=== PATIENT | female | born 1990 | race Caucasian/White ===

== ENCOUNTER 2019-05-20 11:40 | Outpatient (RCR) | payer OTHER, SELFPAY ==
[2019-05-20 12:25] VITALS: BP 126/56; PULSE 76
--- NOTE | 2019-05-20 12:55 | PC.NURSE ---
Pt may go to ER for evaluation from shock per Dr. Howell. Pt denies need for evaluation.
== END 2019-08-18 23:59 | disposition home or self-care (01) ==
LOC: ANHOBOP 11:40
PROVIDERS: Visit Provider Obstetrics & Gynecology
DX: O99.89 Other specified diseases and conditions complicating pregnancy, childbirth and the puerperium (principal); Z3A.21 21 weeks gestation of pregnancy; W86.8XXA Exposure to other electric current, initial encounter
CPT/HCPCS: 59025

== ENCOUNTER 2019-09-17 09:50 | Outpatient (CLI) | payer OTHER, SELFPAY ==
[2019-09-17 10:28] LABS: Hematocrit 35.5 % (37.0-47.0); Hemoglobin 11.5 g/dL (12.0-15.0); Mean Corpuscular HGB Conc 32.4 g/dl (32-36); Mean Corpuscular Hemoglobin 26.1 pg (26-34); Mean Corpuscular Volume 80.7 fl (80-100); Mean Platelet Volume 8.6 fl (7.4-10.4); Platelet Count Result 394 k/mm3 (150-375); White Blood Count 10.5 K/mm3 (4.5-10.0)
[2019-09-17 12:49] LABS: Rapid Plasma Reagin Non-Reactive (NonReactive)
== END 2019-09-17 09:51 | disposition home or self-care (01) ==
LOC: ANHLAB 09:51
PROVIDERS: Visit Provider Obstetrics & Gynecology
DX: Z34.93 Encounter for supervision of normal pregnancy, unspecified, third trimester (principal); Z3A.00 Weeks of gestation of pregnancy not specified
CPT/HCPCS: 36415; 85027; 86592; 86850; 86900; 86901

== ENCOUNTER 2019-09-19 09:50 | Inpatient (IN) | payer OTHER, SELFPAY ==
[2019-09-19] VITALS (48 sets, daily range): BP systolic 107–134; BP diastolic 56–75; PULSE 51–89; RESP 12–18; TEMP 36.1–36.7; O2SAT 96–100; BMI 43.0
--- NOTE | 2019-09-19 10:23 | LDADM ---
This patient, Porsha Aguilar, was admitted to OB Post 115 on 09/19/19 at 09:50. Plans for labor, pain management and were discussed with patient. Patient/family oriented to hospital policies and general routines including ID bracelet, bed and alarms, visiting hours, pain management, procedures, bathroom and other care routines, personal items, smoking policy, room service/diet and guest tray routines, infant security routines, and visiting hours. Patient/Family are encouraged to report perceived risks to care and to ask questions if they do not understand what they are told or what they should do. See OBIX for further documentation.
[2019-09-19] MEDS: LACTATED RINGERS 1,000 ML 999 ML IV CONT ×2 (10:51→12:40)
--- NOTE | 2019-09-19 11:51 | PM.IMHP ---
H&P: HPI History of Present Illness Chief complaint: Narrative: Porsha Aguilar is a 28 year old female 2 para 1001 at 39 weeks and 2 days gestation with a history delivery. She and I have agreed to proceed with repeat delivery. She has no complaints. She denies any loss of fluid, vaginal bleeding, contractions. She denies any headache, blurry vision, epigastric pain. She reports good movement. She denies any chest pain or shortness of breath. She denies any nausea, vomiting, fever, chills. Review of Systems Constitutional: Constitutional: Reports no additional constitutional complaints, Denies fatigue, Denies headache(s), Denies lethargy and Denies weakness Eyes: Eyes: Reports no additional eye complaints, Denies blurry vision and Denies photophobia ENT: Reports as per HPI, Denies headache(s) and Denies neck pain Cardiovascular: Cardiovascular: Denies chest pain, Denies diaphoresis, Denies leg edema, Denies palpitations and Denies dyspnea Respiratory: Respiratory: Denies hemoptysis, Denies dyspnea and Denies wheezing Gastrointestinal: Gastrointestinal: Denies abdominal pain, Denies melena, Denies bloating, Denies hematochezia, Denies nausea and Denies vomiting Genitourinary: Genitourinary: Reports no additional female genitourinary complaints Musculoskeletal: Musculoskeletal: Denies joint swelling, Denies neck pain, Denies numbness and Denies stiffness Neurologic: Denies Abnormal speech present, Denies confusion, Denies headache(s), Denies numbness and Denies weakness Psychiatric: Psychiatric: Denies anxiety, Denies confusion, Denies depression, Denies homicidal ideation and Denies suicidal ideation Endocrine: Endocrine: Denies fatigue and Denies palpitations Allergic/Immunologic: Allergic/Immunologic: Denies wheezing PMFSH Social History Social History Smoking status: Never smoker Second hand tobacco smoke exposure: No Alcohol intake: never Substance use: never Gender identity (if verbalized by the patient): Female Spiritual care concerns: No Meds Home Medications and Allergies Home Medications Medication Instructions Recorded Confirmed Type PNV cmb#95-ferrous fumarate-FA 1 tablet PO DAILY 08/24/19 08/24/19 History [] Allergies Allergy/AdvReac Type Severity Reaction Status Date / Time No Known Allergies Allergy Unverified 01/08/18 15:44 Vital Signs Vital Signs - 24 hr 09/19/19 10:16 09/19/19 10:31 09/19/19 10:46 Pulse Rate 83 89 80 Blood Pressure 130/74 134/75 128/70 Exam Const: General: healthy appearing, comfortable and no acute distress; No confusion Orientation/consciousness: No confusion Eyes: Direct Ophthalmoscopy: No photophobia Resp: Auscultation: clear to auscultation bilaterally, no rales, no rhonchi and no wheezes Cardio: Rate: regular rate Heart sounds: no click, no murmurs and no rubs GI: Inspection: non-distended GI Palp: No abdominal tenderness Auscultation: normal bowel sounds Neuro: General: No confusion Speech: No Abnormal speech present Extrem: General: normal to inspection, no pedal edema and no calf tenderness Assessment and Plan Assessment and plan (1) Previous delivery, antepartum condition or complication: Code(s): O34.219 - Maternal care for unspecified type scar from previous delivery Status: Acute (2) Term : Code(s): Z34.90 - Encounter for supervision of normal , unspecified, unspecified trimester Status: Acute Additional Plan This patient is a 28-year-old multiparous female at 39 weeks gestation with a previous delivery. We are to proceed with repeat delivery. She understands the risks, benefits, and alternatives. She has completed the informed consent process and is ready to proceed.
--- NOTE | 2019-09-19 11:57 | WPDANESEPPF ---
Anes - Initial Pre Proc Eval Procedure: Operation Date: 09/19/19 12:00 Proposed Procedures p Repeat Section - Slim Timmons MD Date/Time: 09/19/19 11:57 Surgeon: Slim Timmons MD Pre Op Diagnosis: Patient Data Age: 28 Gender: F Height: 1.7 m Weight: 124.7 kg Last Vital Signs Pulse 80 09/19/19 10:46 BP 128/70 09/19/19 10:46 Allergies Allergy/AdvReac Type Severity Reaction Status Date / Time No Known Allergies Allergy Unverified 01/08/18 15:44 Home Medications Medication Instructions Recorded Confirmed Type PNV cmb#95-ferrous fumarate-FA 1 tablet PO DAILY 08/24/19 08/24/19 History [] Patient hx anesthesia problems: none Family hx anesthesia problems: none PMFSH Surgical History Surgical History (Updated 09/19/19 @ 11:58 by Irvin Nunez MD) Previous delivery, antepartum condition or complication Social History Social History Smoking status: Never smoker Second hand tobacco smoke exposure: No Alcohol intake: never Substance use: never Gender identity (if verbalized by the patient): Female Spiritual care concerns: No Anes - Eval Final PreProcedure Day of Procedure 09/19/19 11:57 Patient weight: morbidly obese Heart: regular rate and rhythm Lungs: clear to auscultation and normal air movement Airway: Mallampati scale class II Neurological: alert and oriented Last oral intake: >/= 8 hours ASA classification: III Emergent: no Anesthetic plan: proceed Anesthesia type and monitoring: regional spinal Informed Consent: The patient's anesthetic plan and its attendant risks and benefits were discussed with the patient/family/POA. Questions were solicited and answers provided to the satisfaction of the patient/family/POA.
[2019-09-19] MEDS: ceFAZolin 3 GM/D5W 100 ML 100 ML IVPB (12:48)
[2019-09-19] MEDS: OXYTOCIN 20 UNITS in LACTATED RINGERS 1,000 ML 999 ML IV CONT (13:50)
--- NOTE | 2019-09-19 13:50 | PM.PROC ---
Procedure Note - Detailed Date of procedure: 09/19/19 Pre-op diagnosis: Previous delivery Post-op diagnosis: other (Pelvic adhesions, and previous delivery) Procedure performed: low-transverse delivery Description of procedure: The patient was taken the operating room. She was prepped and draped in the dorsal supine position with leftward tilt after induction of spinal anesthetic. When anesthesia was found to be adequate a low-transverse skin incision was made and carried down to the level the fascia with the knife. The fascial incision was made at the midline with a scalpel. The fascial incision was extended laterally with Walton scissors. The fascia was tented upward superior and inferior with Funmi clamps. The rectus muscles were dissected off bluntly. The rectus muscles at the midline. The preperitoneal fat was dissected bluntly at the superior aspect of the separate the rectus muscles. The peritoneal cavity was entered bluntly in the same area. The peritoneal incision was extended superior and inferior with good visualization of bladder. Bladder blade was inserted. A low-transverse incision was made on the uterus with the scalpel. It was carried down the level of the amniotic cavity with a knife. The amniotic cavity bluntly. The uterine incision was made laterally with blunt traction. The was delivered. The cord was clamped and cut. The infant was handed off to waiting pediatric staff. Cord bloods were obtained. The placenta was removed manually. The uterus was exteriorized. Uterus cleared of all clots and debris. Uterus closed in 0 Vicryl in a running locked fashion. An imbricating layer of 0 Vicryl was also placed on the to bolster the closure. Adhesion lysis was performed for about 20 minutes. Omental adhesions to the left adnexa were dissected off using sharp and blunt dissection and suture. With that was completed, The uterus was returned to the abdomen. The gutters were cleared of all clots and debris. The fascia was closed 0 Vicryl in a running fashion. Subcutaneous tissue was irrigated and bleeding areas were cauterized. The skin was closed with subcuticular absorbable afia. The incision was covered with derma rubalcava. The patient tolerated the procedure well. She was taken recovery room stable condition. Sponge, lap, needle counts were correct x2. Anesthesia: spinal Surgeon: Slim Timmons MD Estimated blood loss (mL): 550 Drains: No Packing: No Pathology: none sent Complications: No immediate complications Condition: stable Disposition: floor Findings: Normal maternal anatomy. Average size with normal Apgars. No gross evidence of abruption. Adhesions between the omentum and the left adnexa and uterine fundus.
--- NOTE | 2019-09-19 16:11 | PC.NURSE ---
Patient transferred to post room #281 per stretcher from labor and delivery. Support person present. Oriented to unit, room, information board, rooming in, admission packet and security measures. Patient verbalizes understanding.
[2019-09-19] MEDS: OXYTOCIN 30 UNITS/NS 500 ML 30 UNITS/500 ML BAG 125 UNITS IV CONT (16:49)
[2019-09-19] MEDS: NALBUPHINE HCL 10 MG/ML AMPUL 2 MG IV PUSH ×2 (16:52→20:51)
[2019-09-19] MEDS: TETANUS,DIPHTHERIA,AC PERTUSSIS ADULT (0.5 ML) BOOSTRIX IM (20:53)
[2019-09-20] MEDS: KETOROLAC 30 MG/ML VIAL (*BKC) IV PUSH (00:22)
[2019-09-20 00:34] VITALS: BP 120/64; PULSE 90; RESP 16; TEMP 36.8; O2SAT 97
[2019-09-20 04:01] VITALS: PULSE 90; RESP 16; O2SAT 97
[2019-09-20 04:06] VITALS: BP 111/61; PULSE 88; RESP 18; TEMP 36.8; O2SAT 96
[2019-09-20 05:14] LABS: Basophils Percent Auto 0.3 % (0.2-1.2); Eosinophils Percent Auto 0.3 % (0-4.4); Hematocrit 31.4 % (37.0-47.0); Hemoglobin 10.2 g/dL (12.0-15.0); Immature Granulocyte Absolute 0.05 K/mm3 (0.00-0.031); Immature Granulocyte Percent A 0.5 % (0-0.5); Lymphocytes Absolute Auto 1.44 K/mm3 (0.9-3.2); Lymphocytes Percent Auto 13.8 % (18.3-44.2); Mean Corpuscular HGB Conc 32.5 g/dl (32-36); Mean Corpuscular Hemoglobin 25.9 pg (26-34); Mean Corpuscular Volume 79.7 fl (80-100); Mean Platelet Volume 8.7 fl (7.4-10.4); Monocytes Absolute Auto 0.5 K/mm3 (0.1-0.6); Monocytes Percent Auto 5.2 % (2.6-8.5); Neutrophils Absolute Auto 8.4 K/mm3 (1.3-6.7); Neutrophils Percent Auto 79.9 % (45.5-73.1); Platelet Count Result 351 k/mm3 (150-375); Red Blood Count 3.94 M/mm3 (4.2-5.4); Red Cell Distribution Width 12.9 % (11.5-14.5); White Blood Count 10.4 K/mm3 (4.5-10.0)
[2019-09-20] MEDS: IBUPROFEN 600 MG TABLET PO ×3 (07:29→20:43)
[2019-09-20] MEDS: MULTIVIT/MIN/PREN/FOL AC/IRON TABLET 1 TAB PO (07:30)
[2019-09-20] MEDS: SIMETHICONE 80 MG TAB.CHEW PO ×5 (07:30→20:42)
[2019-09-20] MEDS: DOCUSATE SODIUM 100 MG CAPSULE PO ×2 (07:30→14:13)
[2019-09-20] MEDS: LANOLIN (LANSINOH) 7.5 GM CREAM 1 APPLIC TOPICAL (07:32)
--- NOTE | 2019-09-20 07:32 | P.PNOB_ITS ---
OB - PN: Subj Subjective Date/time seen: 09/20/19 07:32 Patient comments: no complaints, pain well controlled, tolerating diet and flatus present OB - PN: Obj Data Labs CBC & Chem 7: 09/20/19 03:31 Labs: Laboratory Results - last 24 hr 09/20/19 03:31 WBC 10.4 H RBC 3.94 L Hgb 10.2 L Hct 31.4 L MCV 79.7 L MCH 25.9 L MCHC 32.5 RDW 12.9 Plt Count 351 MPV 8.7 Immature Gran % (Auto) 0.5 Neut % (Auto) 79.9 H Lymph % (Auto) 13.8 L [place] % (Auto) 5.2 Eos % (Auto) 0.3 Baso % (Auto) 0.3 Lymph # (Auto) 1.44 [place] # (Auto) 0.5 Eos # (Auto) 0.0 Baso # (Auto) 0.0 Abs Immat Gran (auto) 0.05 H Absolute Neuts (auto) 8.4 H Absolute Nucleated RBC 0.0 Nucleated RBC % 0.0 OB - PN A/P Plan day: 1 Comments: Post Op LTCS - no problems, routine recovery Time Spent With Patient Time: Total time spent is greater than 50% in coordination of care (as documented) at patient's floor/unit and/or counseling patient: Exam Const: General: cooperative, healthy appearing, comfortable and no acute distress Resp: Auscultation: no crackles, no rales, no rhonchi and no wheezes Cardio: Rhythm: regular rhythm Heart sounds: no click and no murmurs GI: Inspection: non-distended Auscultation: normal bowel sounds Extrem: General: normal to inspection, no pedal edema and no calf tenderness
[2019-09-20 08:00] VITALS: BP 130/70; PULSE 85; RESP 18; TEMP 36.3
--- NOTE | 2019-09-20 08:00 | WPDANLDPN2 ---
Anes-Prog Note L&D Date/Time: 09/20/19 08:00 Comfortable throughout: section Neuraxial method: spinal Epidural/Spinal procedure site: clean & non-tender Neuro status: Neuro function grossly intact. Cardiovascular status: normal Respiratory status: normal Airway patency: baseline Mental status: baseline Post-Op hydration status: normal Vital Signs: Last Vital Signs Temp 98.3 F 09/20/19 04:06 Pulse 88 09/20/19 04:06 Resp 18 09/20/19 04:06 BP 111/61 09/20/19 04:06 Pulse Ox 96 09/20/19 04:06 I/O: Intake & Output 09/19/19 09/20/19 09/20/19 23:59 07:59 15:59 Intake Total 640 4000 Output Total 925 3175 Balance -285 825 Post-procedural complaints: pruritis severe, treatment refractory Patient feedback: Patient satisfied with anesthetic care.
--- NOTE | 2019-09-20 08:01 | WPDANLDNPN2 ---
Anes-Prog Note L&D-Neuraxial Date/Time: 09/20/19 08:01 Opiod-related complaints: pruritis severe, treatment refractory Patient feedback: Patient satisfied with post-operative pain management.
[2019-09-20 12:00] VITALS: BP 132/67; PULSE 73; RESP 18; TEMP 36.4
--- NOTE | 2019-09-20 12:55 | PC.NURSE ---
Consulted with patient, mother reports this is 2nd child to breastfeed. Mother is up in bedside chair attempting to breast. R reviewed infant feeding cues, frequencies, duration of feedings, feeding elimination flow sheet, and signs of adequate intake. Demonstrated stimulation techniques to wake infant for feeding. Assisted with to breast. Reviewed positioning/alignment in cross cradle, holding breast in U hold and guided asymmetrical latch on. was able to latch correctly. Infant nursed eagerly, with steady draws and frequent swallowing noted. Reviewed signs of a correct latch, effective nursing and suck swallow ratio. Mother switched to cradle,positioning, suggested mother hold breast during entire feeding to assist infant maintaining deep latch for her comfort and increased intake. Demonstrated how to adjust latch more deeply while feeding. Infant was able to maintain latch without discomfort to mother. Nipple care reviewed. Instructed mother to call out for RN assistance if she is unable to latch infant for feeding or she has discomfort with nursing. Instructed feeding should be initiated three hours from start of last feeding or if feeding cues are noted before. Mother voiced understanding of information shared.
[2019-09-20 20:30] VITALS: BP 137/66; PULSE 101; RESP 16; TEMP 36.5; O2SAT 98
[2019-09-21] MEDS: SIMETHICONE 80 MG TAB.CHEW PO ×4 (05:36→17:25)
[2019-09-21] MEDS: IBUPROFEN 600 MG TABLET PO ×2 (05:37→12:43)
[2019-09-21] MEDS: MULTIVIT/MIN/PREN/FOL AC/IRON TABLET 1 TAB PO (07:44)
[2019-09-21] MEDS: DOCUSATE SODIUM 100 MG CAPSULE PO ×2 (07:45→17:25)
--- NOTE | 2019-09-21 10:15 | PM.OBPNVD ---
OB - PN: Subj Subjective Date/time seen: 09/21/19 10:15 Patient comments: no complaints, pain well controlled, incisional pain, tolerating diet and flatus present OB - PN: Obj Data Labs CBC & Chem 7: 09/20/19 03:31 OB - PN A/P Plan day: 2 Plan: routine care Comments: POD#2 LTCS - no problems, Time Spent With Patient Time: Total time spent is greater than 50% in coordination of care (as documented) at patient's floor/unit and/or counseling patient: Exam Const: General: comfortable, no acute distress and alert Resp: Effort & Inspection: normal respiratory effort Auscultation: no crackles, no rales and no rhonchi Cardio: Rate: regular rate Heart sounds: no click, no murmurs and no rubs GI: Inspection: non-distended GI Palp: No Tenderness to palpation present (GI) Auscultation: normal bowel sounds Other: Incision - CDI Extrem: General: normal to inspection, no pedal edema and no calf tenderness
[2019-09-21 10:27] VITALS: BP 124/68; PULSE 89; RESP 18; TEMP 37.1; O2SAT 100
[2019-09-21 20:30] VITALS: BP 124/64; PULSE 100; RESP 16; TEMP 36.2; O2SAT 100
[2019-09-22] MEDS: IBUPROFEN 600 MG TABLET PO ×2 (01:22→08:00)
--- NOTE | 2019-09-22 02:05 | PC.NURSE ---
0120 - met pt in hallway (as she was walking) to check in with her and she how she was feeling and if she needed anything. pt states she had recently called out for pain meds and would also like fresh water. Walked pt to room. Pt stated she would like a [place] 5 and Motrin. Upon return with those pain medicines, pt was tearful and crying in the chair. Stated her pain was very bad and rated it an 8. Asked pt if she would like a [place] 10 instead along with the Motrin and she agreed that it would be better to have a [place] 10 at this time. Pt also stated that she had blisters on her buttocks from her pad rubbing her and from sitting in bed. After assessing pt's buttock it appears to be bilateral reddened areas, approximately 4 inches (on both sides) located on the outer lower portion of buttocks; no blisters noted, no skin tears noted. Reddened areas appear to be right where the mesh underwear is rubbing. Pt changed into larger mesh underwear, and encouraged to use her personal underwear if that would feel better. Pt given pain meds and suggested to leave buttocks open to air as much as possible (without wearing underwear) while in the room and will call provider for further orders.
[2019-09-22] MEDS: BETAMETHASONE/CLOTRIMAZOLE CR 15 GM TUBE 1 APPLIC TOPICAL (02:18)
[2019-09-22] MEDS: WITCH HAZEL 40 PADS 1 PAD TOPICAL (02:19)
[2019-09-22] MEDS: BENZOCAINE 20% AER SPR (*SP) 56 GM CAN 1 SPRAY TOPICAL (02:20)
--- NOTE | 2019-09-22 07:45 | PM.OBPNVD ---
OB - PN: Subj Subjective Date/time seen: 09/22/19 07:45 Patient comments: no complaints, pain well controlled, incisional pain, tolerating diet and flatus present OB - PN: Obj Data Labs CBC & Chem 7: 09/20/19 03:31 OB - PN A/P Plan day: 3 Plan: routine care, discharge home and other Comments: Incision check in one week. Given precautions Time Spent With Patient Time: Total time spent is greater than 50% in coordination of care (as documented) at patient's floor/unit and/or counseling patient: Exam Const: General: comfortable, no acute distress and alert Resp: Effort & Inspection: normal respiratory effort Auscultation: no crackles, no rales and no rhonchi Cardio: Rate: regular rate Heart sounds: no click, no murmurs and no rubs GI: Inspection: non-distended GI Palp: No Tenderness to palpation present (GI) Auscultation: normal bowel sounds Other: Incision - CDI Extrem: General: normal to inspection, no pedal edema and no calf tenderness
--- NOTE | 2019-09-22 07:46 | PM.OBDSVD ---
DS: Admitting Diagnosis Admitting Diagnosis Admitting Diagnosis: Maternal care for unspecified type scar from previous delivery DS: Discharge Diagnosis Discharge Diagnosis (1) Previous delivery, antepartum condition or complication: Code(s): O34.219 - Maternal care for unspecified type scar from previous delivery Status: Acute (2) Prior complicated by PIH, antepartum: Code(s): O09.899 - Supervision of other high risk pregnancies, unspecified trimester Status: Acute (3) Term : Code(s): Z34.90 - Encounter for supervision of normal , unspecified, unspecified trimester Status: Acute OB - DS: Summary OB Procedures : None OB Procedures Intrapartum: OB Procedures: : None Peripartum Data Procedures: Procedures Operation Date: 09/19/19 12:00 Actual Procedures Side Surgeon p Section Slmi Timmons MD Time Spent with Patient Time attestation: Total time spent providing and/or coordinating discharge services: Discharge Plan Discharge Attending physician on discharge: Slim Timmons Consulting providers: Slim Timmons Discharging Clinician: Slim Timmons Patient Disposition: Home Health Service Diet: regular Patient Instructions: Antibiotic Form Stand Alone Forms: General Discharge Information Follow-up/Referrals: Slim Timmons MD [Physician] - Discharge Medications: New hydrocodone-acetaminophen 5-325 mg tablet 1 - 2 tablet PO Q4H PRN (Reason: pain) Qty: 25 RF: 0 Continued PNV cmb#95-ferrous fumarate-FA [] 28 mg iron- 800 mcg Tablet 1 tablet PO DAILY RF: 0 Date of admission: 09/19/19 09:50 Primary Care Provider: PHYSICIAN,DISPLAY SCREEN FABRICATOR Admitting Provider: Slim Timmons Attending physician on admission: Slim Timmons
[2019-09-22 07:50] VITALS: BP 125/75; PULSE 88; RESP 16; TEMP 37.1; O2SAT 99
[2019-09-22] MEDS: MULTIVIT/MIN/PREN/FOL AC/IRON TABLET 1 TAB PO (08:00)
[2019-09-22] MEDS: DOCUSATE SODIUM 100 MG CAPSULE PO (08:00)
--- NOTE | 2019-09-22 08:00 | PC.NURSE ---
Patient viewed the discharge video Mother & Baby Care, The First Two Weeks . Patient was given the opportunity and encouraged to ask questions. Patient verbalized understanding of information shared and has been given the mother/baby guide for home reference.
[2019-09-23 07:52] VITALS: BP 135/77; PULSE 92; RESP 20; TEMP 36.8; O2SAT 98
== END 2019-09-22 12:20 | disposition home or self-care (01) | DRG 540 ==
LOC: ANHOBPP 09:57 → ANHOB2 16:24
PROVIDERS: Admitting Provider Obstetrics & Gynecology; Visit Provider Obstetrics & Gynecology
PROC: 10D00Z1 Extraction of Products of Conception, Low, Open Approach (ICD-10-PCS; CPT 59514; principal; 2019-09-19 12:00)
DX: O34.211 Maternal care for low transverse scar from previous cesarean delivery (principal); Z37.0 Single live birth; Z3A.39 39 weeks gestation of pregnancy; O13.4 Gestational [pregnancy-induced] hypertension without significant proteinuria, complicating childbirth; O99.214 Obesity complicating childbirth; E66.01 Morbid (severe) obesity due to excess calories
CPT/HCPCS: 36415; 85025; 90715; A9270; J0131; J0690; J1200; J1885; J2274; J2300; J2590; J7120

== ENCOUNTER 2021-09-23 09:09 | Outpatient (RCR) | payer OTHER, SELFPAY ==
[2021-09-19 21:42] LABS: Beta HCG Quantitative 6.65 mIU/ML
[2021-09-23 09:55] LABS: Beta HCG Quantitative < 2.39 mIU/ML
== END 2021-12-18 23:59 | disposition home or self-care (01) ==
LOC: ANHLAB 09:09
PROVIDERS: Visit Provider Obstetrics & Gynecology
DX: O20.0 Threatened abortion (principal); Z3A.00 Weeks of gestation of pregnancy not specified
CPT/HCPCS: 36415; 84702

== ENCOUNTER 2022-11-17 10:02 | Outpatient (CLI) | payer OTHER, SELFPAY ==
[2022-11-17 10:33] LABS: Hemoglobin 11.4 g/dL (12.0-15.0); Mean Corpuscular HGB Conc 32.6 g/dl (32-36); Mean Corpuscular Hemoglobin 25.6 pg (26-34); Mean Corpuscular Volume 78.5 fl (80-100); Mean Platelet Volume 8.6 fl (7.4-10.4); Platelet Count Result 445 k/mm3 (150-375); Red Blood Count 4.46 M/mm3 (4.2-5.4); Red Cell Distribution Width 13.7 % (11.5-14.5); White Blood Count 8.8 K/mm3 (4.5-10.0)
[2022-11-17 14:19] LABS: Rapid Plasma Reagin Non-Reactive (NonReactive)
== END 2022-11-17 10:03 | disposition home or self-care (01) ==
LOC: ANHLAB 10:04
PROVIDERS: Visit Provider Obstetrics & Gynecology
DX: Z34.93 Encounter for supervision of normal pregnancy, unspecified, third trimester (principal); Z3A.00 Weeks of gestation of pregnancy not specified
CPT/HCPCS: 36415; 85027; 86592; 86850; 86900; 86901

== ENCOUNTER 2022-11-18 05:10 | Inpatient (IN) | payer OTHER, SELFPAY ==
[2022-11-18] VITALS (35 sets, daily range): BP systolic 111–138; BP diastolic 42–78; PULSE 64–120; RESP 16–22; TEMP 36.1–37.1; O2SAT 95–100; BMI 43.1
--- NOTE | 2022-11-18 06:06 | WPDANESEPP ---
Anes - Eval Pre Procedure Procedure: Operation Date: 11/18/22 07:30 Proposed Procedures p Repeat Section - Slim Timmons MD Date/Time: 11/18/22 06:06 Pre Op Diagnosis: section Patient Data Age: 31 Gender: F Height: Weight: Allergies Allergy/AdvReac Type Severity Reaction Status Date / Time No Known Allergies Allergy Unverified 01/08/18 15:44 Home Medications Medication Instructions Recorded Confirmed Type vit no.95-ferrous 1 tablet PO DAILY 08/24/19 08/24/19 History fumarate 28 mg-folic acid 800 mcg tablet () Patient hx anesthesia problems: none Family hx anesthesia problems: none Results Review: All pre-operative results and documents have been reviewed as part of the pre-operative evaluation. FOR[facility]LY [facility], [facility] Past Medical History Medical History (Updated 11/18/22 @ 06:09 by Rama Snow CRNA) Morbid obesity Surgical History Surgical History Previous delivery, antepartum condition or complication Family History Family History Father Diabetes mellitus Hypertension Grandparent Diabetes mellitus Hypertension Mother Cerebrovascular accident Family history of pulmonary embolism Social History Social History Smoking status: Never smoker Second hand tobacco smoke exposure: No Alcohol intake: never Substance use: never Gender identity (if verbalized by the patient): Female Spiritual care concerns: No Exam Day of Procedure 11/18/22 06:06 Patient weight: morbidly obese Heart: regular rate and rhythm Lungs: normal air movement Airway: Mallampati scale Neurological: alert and oriented
--- NOTE | 2022-11-18 06:18 | LDADM ---
This patient, Porsha Aguilar, was admitted to Labor/Delivery/Recovery 120 on 11/18/22 at 05:10. Plans for labor, pain management and were discussed with patient. Patient/family oriented to hospital policies and general routines including ID bracelet, bed and alarms, visiting hours, pain management, procedures, bathroom and other care routines, personal items, smoking policy, room service/diet and guest tray routines, security routines, and visiting hours. Patient/Family are encouraged to report perceived risks to care and to ask questions if they do not understand what they are told or what they should do. See OBIX for further documentation.
[2022-11-18] MEDS: LACTATED RINGERS 1,000 ML 125 ML IV CONT ×2 (06:22→06:57)
[2022-11-18] MEDS: ceFAZolin 3 GM/D5W 100 ML 100 ML IVPB (06:57)
--- NOTE | 2022-11-18 07:00 | P.PNAN_ITS ---
Anes - Eval Final PreProcedure Day of Procedure 11/18/22 07:00 Patient weight: morbidly obese Heart: regular rate and rhythm Lungs: clear to auscultation and normal air movement Airway: Mallampati scale class II Neurological: alert and oriented Last oral intake: >/= 8 hours ASA classification: III Emergent: no Anesthetic plan: proceed Anesthesia type and monitoring: regional spinal and standard monitoring Results Review: All pre-operative results and documents have been reviewed as part of the pre- operative evaluation. Informed Consent: The patient's anesthetic plan and its attendant risks and benefits were discussed with the patient/family/POA. Questions were solicited and answers provided to the satisfaction of the patient/family/POA.
--- NOTE | 2022-11-18 07:24 | PM.IMHP ---
H&P: HPI History of Present Illness Date/Time: 11/18/22 07:24 Chief Complaint: Term Narrative: this patient is a 31-year-old female with previous delivery in unwanted fertility. We have agreed to perform repeat delivery and bilateral salpingectomy. She understands the risk. She understands that injuries may occur that result in hospitalization go more surgery, and severe illness. She understands there is risk of hemorrhage and infection. She denies any nausea, vomiting, fever, chills. She denies any chest pain or shortness of breath. Review of Systems Review of Systems: All systems reviewed & are unremarkable except as noted in HPI and below Constitutional: Constitutional: Denies chills, Denies fatigue, Denies fever(s) and Denies weakness Eyes: Eyes: Denies blurry vision, Denies change in vision, Denies loss of peripheral vision, Denies loss of vision, Denies other visual disturbances and Denies eye pain ENT: Denies vertigo, Denies dizziness, Denies hearing loss, Denies mouth pain, Denies nasal obstruction, Denies neck mass and Denies neck pain Cardiovascular: Cardiovascular: Denies chest pain, Denies diaphoresis, Denies syncope, Denies leg edema and Denies dyspnea Respiratory: Respiratory: Denies chest congestion, Denies cough, Denies hemoptysis, Denies dyspnea and Denies wheezing Gastrointestinal: Gastrointestinal: Denies abdominal pain, Denies constipation, Denies diarrhea, Denies nausea and Denies vomiting Genitourinary: Genitourinary: Denies hematuria, Denies change in libido, Denies nocturia, Denies genital lesions, Denies flank pain and Denies urinary urgency Musculoskeletal: Musculoskeletal: Denies abnormal gait, Denies back pain, Denies myalgias, Denies arthralgias, Denies joint swelling, Denies muscle weakness and Denies neck pain Integumentary/Breasts: Skin/Breast: Denies swelling, Denies breast pain, Denies breast mass, Denies dry skin, Denies nipple discharge, Denies unusual bruising and Denies jaundice Neurologic: Denies Neuro-related abnormal movements, Denies Abnormal speech present, Denies abnormal gait, Denies behavioral changes, Denies confusion, Denies vertigo, Denies dizziness, Denies syncope, Denies loss of vision, Denies memory loss, Denies convulsions and Denies weakness Psychiatric: Psychiatric: Denies abnormal sleep pattern, Denies behavioral changes, Denies change in libido, Denies confusion, Denies depression, Denies anhedonia and Denies memory loss Endocrine: Endocrine: Reports no additional endocrine complaints, Denies change in libido and Denies fatigue Hematologic/Lymphatic: Hematologic/Lymphatic: Reports no additional hematologic/lymphatic complaints Allergic/Immunologic: Allergic/Immunologic: Reports no additional allergic/immunologic complaints and Denies wheezing PMFSH Past Medical History Medical History (Updated 11/18/22 @ 07:27 by Slim Timmons MD) Morbid obesity Surgical History Surgical History Previous delivery, antepartum condition or complication Family History Family History Father Diabetes mellitus Hypertension Grandparent Diabetes mellitus Hypertension Mother Cerebrovascular accident Family history of pulmonary embolism Social History Social History Smoking status: Never smoker Second hand tobacco smoke exposure: No Alcohol intake: never Substance use: never Lack of Transportation: No Lack of Food: Never True Current Housing: I Have Housing Concerned About Future Housing: No Difficulty Paying Gas/Electric Bills: No Difficulty Paying for Meds: No Currently Unemployed: No Education: Bachelor's Degree Difficulty w/ Childcare or Family Care: No Gender identity (if verbalized by the patient): Female Spiritual care concerns: No
--- NOTE | 2022-11-18 07:29 | WPDHPUPDATE1 ---
History and Physical Update Update Date/Time: 11/18/22 07:29 History and Physical has been reviewed, including an updated exam of the patient. There are NO changes in the patient's condition. Risks, benefits, and alternatives have been discussed and questions answered. Patient agrees to proceed with procedure.
--- NOTE | 2022-11-18 08:52 | W.PM.PROC2 ---
Procedure Note - Detailed Date of Procedure 11/18/22 Pre-op Diagnosis Previous , unwanted fertility Post-op Diagnosis Same Procedure Performed Low-transverse section Surgeon Slim Timmons MD Anesthesia Spinal Findings Normal gestational maternal anatomy, average size , normal Apgars. Description of Procedure The patient was taken the operating room. She was prepped and draped in dorsal supine position with a leftward tilt. This was done after spinal anesthetic was applied. A low-transverse skin incision was made and carried down till of the fascia with the knife. The fascial incision was made with the knife. The fascial incision was extended laterally with Walton scissors. The fascia was tented upward superiorly and inferiorly the rectus muscles were dissected off bluntly. The rectus muscles were the midline. The preperitoneal fat and peritoneum were dissected open bluntly at the superior aspect of the rectus muscles. The peritoneal incision was extended superior and inferior with good position of bladder. The uterine incision was made with a scalpel down to the level of the amniotic cavity. The amniotic cavity was entered bluntly. The infant was delivered. The cord was clamped and cut and the was handed off to waiting pediatric staff. Cord bloods were obtained. The placenta was removed manually. The uterus was exteriorized. The uterus was cleared of all clots, debris and membranes. The uterus was closed in 0 Vicryl running lock fashion. An imbricating over a was placed along the incision line as well. Each fallopian tube was grasped and raised with a [place]. With from the underlying venous structures. The mesosalpinx between the tube and the rest the adnexa was cauterized and transected with LigaSure cautery. It was performed from the distal tube near the ovary in a stepwise fashion towards the cornua. The tube at the cornua was cauterized transected with LigaSure cautery. This was performed in a bilateral fashion. The uterus was returned to the abdomen. The gutters were cleared of all clots and debris. The fascia was closed with 0 Vicryl running fashion. The subcutaneous tissue was irrigated pinpoint bleeders were cauterized. The skin was closed with subcuticular absorbable afia. The skin incision line was covered with glue. The patient tolerated the procedure well. She has taken recovery room in stable condition. Sponge lap and needle counts were correct x2. Complications No immediate complications Condition Stable Disposition PACU
[2022-11-18] MEDS: OXYTOCIN 30 UNITS/NS 500 ML 30 UNITS/500 ML BAG 125 UNITS IV CONT (09:49)
--- NOTE | 2022-11-18 10:51 | OBPPTRN ---
Patient transferred to post room #281 via stretcher. Support person present. Oriented to unit, room, information board, rooming in, admission packet and security measures. Patient verbalizes understanding.
[2022-11-18] MEDS: KETOROLAC 30 MG/ML VIAL (*BKC) IV PUSH (12:43)
[2022-11-18] MEDS: DEXTROSE 5%/0.45% SOD CHL 1,000 ML 125 ML IV CONT (13:58)
[2022-11-18] MEDS: MULTIVIT/MIN/PREN/FOL AC/IRON TABLET 1 TAB PO (16:20)
[2022-11-18] MEDS: diphenhydrAMINE HCl CAP 25 MG CAPSULE PO (16:20)
[2022-11-18] MEDS: DOCUSATE SODIUM 100 MG CAPSULE PO (16:20)
[2022-11-18] MEDS: HYDROcodone/acetaminophen (*CRX) 5-325 MG TABLET 1 TAB PO (19:36)
[2022-11-18] MEDS: IBUPROFEN 600 MG TABLET PO (19:36)
[2022-11-19] MEDS: diphenhydrAMINE HCl CAP 25 MG CAPSULE PO
[2022-11-19 01:11] VITALS: BP 114/65; PULSE 87; RESP 18; TEMP 37.1; O2SAT 96
[2022-11-19 06:01] LABS: Basophils Percent Auto 0.2 % (0.2-1.2); Eosinophils Absolute Auto 0.1 K/mm3 (0-0.3); Eosinophils Percent Auto 0.7 % (0-4.4); Hemoglobin 9.5 g/dL (12.0-15.0); Immature Granulocyte Absolute 0.04 K/mm3 (0.00-0.031); Immature Granulocyte Percent A 0.3 % (0-0.5); Lymphocytes Absolute Auto 2.05 K/mm3 (0.9-3.2); Lymphocytes Percent Auto 16.7 % (18.3-44.2); Mean Corpuscular HGB Conc 31.7 g/dl (32-36); Mean Corpuscular Hemoglobin 25.7 pg (26-34); Mean Corpuscular Volume 81.1 fl (80-100); Mean Platelet Volume 8.8 fl (7.4-10.4); Monocytes Absolute Auto 0.8 K/mm3 (0.1-0.6); Monocytes Percent Auto 6.2 % (2.6-8.5); Neutrophils Absolute Auto 9.3 K/mm3 (1.3-6.7); Neutrophils Percent Auto 75.9 % (45.5-73.1); Platelet Count Result 398 k/mm3 (150-375); Red Cell Distribution Width 13.6 % (11.5-14.5); White Blood Count 12.3 K/mm3 (4.5-10.0)
[2022-11-19] MEDS: IBUPROFEN 600 MG TABLET PO ×3 (06:30→19:43)
[2022-11-19] MEDS: HYDROcodone/acetaminophen (*CRX) 5-325 MG TABLET 1 TAB PO ×3 (06:30→19:46)
--- NOTE | 2022-11-19 07:33 | PM.OBPNVD ---
OB - PN: Subj Subjective Date/time seen: 11/19/22 07:33 pp day 1 doing well incisional pain flatus present OB - PN: Obj Data Labs 11/19/22 05:53 Labs: Laboratory Results - last 24 hr 11/19/22 05:53 WBC 12.3 H RBC 3.70 L Hgb 9.5 L Hct 30.0 L MCV 81.1 MCH 25.7 L MCHC 31.7 L RDW 13.6 Plt Count 398 H MPV 8.8 Immature Gran % (Auto) 0.3 Neut % (Auto) 75.9 H Lymph % (Auto) 16.7 L Hickman % (Auto) 6.2 Eos % (Auto) 0.7 Baso % (Auto) 0.2 Lymph # (Auto) 2.05 Hickman # (Auto) 0.8 H Eos # (Auto) 0.1 Baso # (Auto) 0.0 Abs Immat Gran (auto) 0.04 H Absolute Neuts (auto) 9.3 H Absolute Nucleated RBC 0.0 Nucleated RBC % 0.0 OB - PN A/P Time Spent With Patient Time: Total time spent is greater than 50% in coordination of care (as documented) at patient's floor/unit and/or counseling patient: Review of Systems Review of Systems: All systems reviewed & are unremarkable except as noted in HPI and below Exam Const: General: cooperative Chest: Chest palpation & inspection: normal inspection of the chest Resp: Effort & Inspection: normal respiratory effort Cardio: Rate: regular rate Rhythm: regular rhythm GI: Other: Incision CDI Skin: General skin exam: normal color Extrem: Right lower extremity: normal to inspection Left lower extremity: normal to inspection
[2022-11-19 07:45] VITALS: BP 123/63; PULSE 89; RESP 16; TEMP 36.6; O2SAT 97
--- NOTE | 2022-11-19 09:23 | WPDANLDNPN2 ---
Anes-Prog Note L&D-Neuraxial Date/Time: 11/19/22 09:23 Patient feedback: Patient satisfied with post-operative pain management.
--- NOTE | 2022-11-19 09:23 | WPDANLDPN2 ---
Anes-Prog Note L&D Date/Time: 11/19/22 09:23 Neuro status: Neuro function grossly intact. Cardiovascular status: normal Respiratory status: normal Airway patency: baseline Mental status: baseline Post-Op hydration status: normal Vital Signs: Last Vital Signs Temp 37.1 C 11/19/22 01:11 Pulse 87 11/19/22 01:11 Resp 18 11/19/22 01:11 BP 114/65 11/19/22 01:11 Pulse Ox 96 11/19/22 01:11 O2 Del Method Room Air 11/19/22 01:11 Pain score (VAS): 0 I/O: Intake & Output 11/18/22 11/19/22 11/19/22 23:59 07:59 15:59 Intake Total 1000 1570 Output Total 3575 Balance 999 -2004 Post-procedural complaints: none Patient feedback: Patient satisfied with anesthetic care.
[2022-11-19] MEDS: MULTIVIT/MIN/PREN/FOL AC/IRON TABLET 1 TAB PO (09:56)
[2022-11-19] MEDS: POLYSACCHARIDE IRON COMPLEX 150 MG CAPSULE PO ×2 (09:56→16:28)
[2022-11-19] MEDS: DOCUSATE SODIUM 100 MG CAPSULE PO ×2 (09:56→16:28)
--- NOTE | 2022-11-19 13:52 | PC.NURSE ---
[id number] Introductions were made, then consulted with patient to assess needs related to . Mother led the conversation with her?plans to feed?her , her?experience so far and her history. Mother works well with her with encouragement and education. Encouraged understanding of the benefits of skin to skin (demonstrating unwrapping and placing upright on her chest), stimulating with massage touch, changing positions to encourage wakefulness, how to watch for early feeding cues, responsive feeding, feeding on demand (aiming for 8-12 times in 24 hours, about every 2-3 hours), milk production, building/maintaining a milk supply, duration of feeding, signs of adequate intake/output and how to record on the feeding sheet. Reviewed positioning and ear, shoulder, hip alignment, supporting the breast to facilitate a deep latch, asymmetrical latch (off-center), leading with the chin with a big, open, wide gape and body close to mother. latched optimally to the right breast in football position. Education given to mother of how to visualize suck/swallow ratios and listen for drinking at the breast. was able to maintain latch without discomfort to mother. Nipple care reviewed with optimal latch and good positioning. Resources used to facilitate learning were used with the tool, mom and baby guide. Mother voiced understanding of skin to skin, stimulating with massage touch, responsive feedings, hand expressed colostrum, talking to infant to encourage if it has been 2 -2.5 hours since the start of the last , to call if infant does not latch, or if there is discomfort with . Resources provided for inpatient/outpatient with feeding sheet, name written on the communication board and the mom/baby guide. Parents voiced understanding of information, demonstrated learning and will call if there is a request for assistance. Reported to the Primary RN.
[2022-11-19] MEDS: CYCLOBENZAPRINE HCL 10 MG TABLET PO (14:31)
[2022-11-19 19:45] VITALS: BP 127/66; PULSE 105; RESP 18; TEMP 36.3
[2022-11-20] MEDS: HYDROcodone/acetaminophen (*CRX) 5-325 MG TABLET 1 TAB PO ×3 (05:14→23:42)
[2022-11-20] MEDS: IBUPROFEN 600 MG TABLET PO ×3 (05:17→23:41)
--- NOTE | 2022-11-20 08:20 | PM.OBPNVD ---
OB - PN: Subj Subjective Date/time seen: 11/20/22 08:20 Patient comments: no complaints, pain well controlled, incisional pain, tolerating diet and flatus present OB - PN: Obj Data Labs 11/19/22 05:53 OB - PN A/P Plan day: 2 Plan: routine care Comments: POD#2 LTCS - no problems, Time Spent With Patient Time: Total time spent is greater than 50% in coordination of care (as documented) at patient's floor/unit and/or counseling patient: Exam Const: General: comfortable, no acute distress and alert Resp: Effort & Inspection: normal respiratory effort Auscultation: no crackles, no rales and no rhonchi Cardio: Rate: regular rate Heart sounds: no click, no murmurs and no rubs GI: Inspection: non-distended GI Palp: No Tenderness to palpation present (GI) Auscultation: normal bowel sounds Other: Incision - CDI Extrem: General: normal to inspection, no pedal edema and no calf tenderness
[2022-11-20 08:25] VITALS: BP 147/84; PULSE 129; RESP 16; TEMP 36.6; O2SAT 99
[2022-11-20] MEDS: POLYSACCHARIDE IRON COMPLEX 150 MG CAPSULE PO ×2 (08:54→15:55)
[2022-11-20] MEDS: MULTIVIT/MIN/PREN/FOL AC/IRON TABLET 1 TAB PO (08:54)
[2022-11-20] MEDS: DOCUSATE SODIUM 100 MG CAPSULE PO ×2 (08:55→14:35)
--- NOTE | 2022-11-20 16:07 | PC.NURSE ---
[id number] Mother has questions regarding her personal pump. Instructions given on cleaning, care, usage, that there should be no pain, pumping schedule for milk production, collection, and storage of human milk. Patient was assessed for correct placement, flange size, to pump for comfort and nipple stretching/stimulation for adequate milk production every 3 hours (8 times in 24 hours) 1-2 times at night. Mother voiced understanding of the education shared along with mom and baby guide for additional resource information. Reported to the primary RN. [phone] Purposefully rounded to assess for needs. Mother works well with her infant with encouragement. Reviewed working with infant, supporting breast and how to protect the nipples with an optimal deep latch, good positioning, and good hand washing. Reviewed positioning and alignment, supporting breast, off-centered (asymmetrical latch) and leading with the chin with big, open, wide gape. latched optimally to the left breast in football position. Education given to mother of how to visualize suck/swallow ratios and listen for drinking at the breast. was able to maintain latch without discomfort to mother. Nipple care reviewed with optimal latch, good positioning and using clean hands when feeding her infant and touching her breast. Resources used to facilitate learning were used from the mom and baby guide. Parents voiced understanding of the education shared, to call for assistance if the infant does not latch or if there is discomfort with . Reported to the primary RN.
[2022-11-20 20:35] VITALS: BP 131/61; PULSE 126; RESP 20; TEMP 36.7
--- NOTE | 2022-11-21 07:20 | PM.OBPNVD ---
OB - PN: Subj Subjective Date/time seen: 11/21/22 07:20 s/p section day 3 plan d/c home doing well baby doing well OB - PN: Obj Data Labs 11/19/22 05:53 OB - PN A/P Plan day: 3 Plan: routine care and discharge home Time Spent With Patient Time: Total time spent is greater than 50% in coordination of care (as documented) at patient's floor/unit and/or counseling patient: Review of Systems Review of Systems: All systems reviewed & are unremarkable except as noted in HPI and below Exam Const: General: cooperative Chest: Chest palpation & inspection: normal inspection of the chest Resp: Effort & Inspection: normal respiratory effort Cardio: Rate: regular rate Rhythm: regular rhythm GI: Other: incision CDI Extrem: Right lower extremity: normal to inspection Left lower extremity: normal to inspection Psych: Appearance: grossly normal
--- NOTE | 2022-11-21 07:23 | P.DS_ITS ---
DS: Admitting Diagnosis Discharge Date 11/21/22 Admitting Diagnosis section DS: Discharge Diagnosis Discharge Diagnosis (1) Term : Code(s): Z34.90 - Encounter for supervision of normal , unspecified, unspecified trimester Status: Acute OB - DS: Summary OB Procedures : None OB Procedures Intrapartum: OB Procedures: : None Peripartum Data Procedures: Procedures Operation Date: 11/18/22 07:30 Actual Procedure Side Surgeon p Repeat Section Not Applicable Slim Timmons MD Time Spent with Patient Time attestation: Total time spent providing and/or coordinating discharge services: DS: Data Data Completed and Pending Completed studies during hospitalization: Pending at discharge 11/18/22 09:25 Surgical [PTH] Routine Discharge Plan Discharge Attending physician on discharge: Slim Timmons Discharging Clinician: Karolina Narvaez Patient Disposition: Home, Self-Care Activity: pelvic rest Diet: regular Patient Instructions: Antibiotic Form Stand Alone Forms: General Discharge Information Follow-up/Referrals: Slim Timmons MD [Physician] - 1 Week Karolina Narvaez CN [Certified Nurse Senior Benefits Manager] - Discharge Medications: No Action PNV [id number] [] 28 mg iron- 800 mcg Tablet 1 tablet PO DAILY Date of admission: 11/18/22 05:10 Primary Care Provider: PHYSICIAN,CLOTHING SUPERVISOR Admitting Provider: Slim Timmons Attending physician on admission: Slim Timmons Condition: Stable
[2022-11-21 07:40] VITALS: BP 115/80; PULSE 105; RESP 18; TEMP 37; O2SAT 97
[2022-11-21] MEDS: DOCUSATE SODIUM 100 MG CAPSULE PO (09:45)
[2022-11-21] MEDS: POLYSACCHARIDE IRON COMPLEX 150 MG CAPSULE PO (09:45)
[2022-11-21] MEDS: IBUPROFEN 600 MG TABLET PO (09:45)
[2022-11-21] MEDS: MULTIVIT/MIN/PREN/FOL AC/IRON TABLET 1 TAB PO (09:45)
[2022-11-21] MEDS: HYDROcodone/acetaminophen (*CRX) 5-325 MG TABLET 1 TAB PO (09:46)
[2022-11-22 07:43] VITALS: BP 135/72; PULSE 112; RESP 20; TEMP 37.6; O2SAT 99
== END 2022-11-21 11:55 | disposition home or self-care (01) | DRG 785 ==
LOC: ANHLDR 05:14 → ANHOB2 11:01
PROVIDERS: Admitting Provider Obstetrics & Gynecology; Visit Provider Obstetrics & Gynecology
PROC: 10D00Z1 Extraction of Products of Conception, Low, Open Approach (ICD-10-PCS; CPT 59514; principal; 2022-11-18 07:30)
DX: O34.211 Maternal care for low transverse scar from previous cesarean delivery (principal); Z37.0 Single live birth; Z3A.39 39 weeks gestation of pregnancy; O69.81X0 Labor and delivery complicated by cord around neck, without compression, not applicable or unspecified; Z30.2 Encounter for sterilization
CPT/HCPCS: 36415; 85025; 85027; 86592; 86850; 86900; 86901; 88302; A9270; J0690; J1885; J2274; J2590; J7120